=== PATIENT | female | born 1955 | race Caucasian/White ===

== ENCOUNTER → 2024-08-08 14:50 | Outpatient (CLI) | payer MEDICARE, OTHER, SELFPAY ==
--- NOTE | 2024-08-08 14:53 | DI.CT.S_ITS ---
PROCEDURE: CT CHEST WO CON INDICATIONS: RUL NODULE TECHNIQUE: Noncontrast 5 mm thick sections acquired from the pulmonary apices to the posterior costophrenic angles. 1 mm lung window, 5 mm thick coronal and sagittal and 7 mm axial MIP reformats were then acquired. For radiation dose reduction, the following was used: automated exposure control, adjustment of mA and/or kV according to patient size. COMPARISON: [facility], CT, CT CHEST WITHOUT CONTRAST, 01/24/2023, 13:26. [facility], CT, CT CHEST WITHOUT CONTRAST, 07/18/2023, 12:08. [facility], CT, CT CHEST WITHOUT CONTRAST, 01/25/2022, 10:27. FINDINGS: Image quality: Diagnostic Lungs and pleura: No dense airspace disease or pleural effusions. Again seen is a right upper lobe pulmonary nodule on image ( ) measuring 9 x 5 mm, previously 12 x 6 mm. This was 1st seen in December of 2022 but not seen in December of 2021. No other new or enlarging nodule. Micro nodules and granulomas are seen elsewhere. There is a new ill-defined ground-glass density in the left lower lobe (/). Atypical cystic lesion in the lateral portion of the left upper lobe is seen, similar to prior in December 2022 measuring up to 1.9 cm (/109) No measurable solid portion is seen currently. Mediastinum, heart, and esophagus: Mild distal esophageal wall thickening, nonspecific, adjacent to postsurgical changes at the gastroesophageal junction. No pathologic lymph nodes by size criteria. There are coronary calcifications. Heart size is at the upper limit of normal. 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 Bones: There are degenerative changes. IMPRESSION: Pulmonary nodules as described above. The right upper lobe pulmonary nodule is slightly decreased in size. (/) New ill-defined ground-glass density in the left lower lobe is seen, possibly infectious/inflammatory (/214). Atypical cystic lesion in the lateral left upper lobe is stable (/109). Another six-month follow-up is recommended for the above findings. Other findings above. Dictated by: Matias Covarrubias M.D. on 08/08/2024 at 17:19 Approved by: Matias Covarrubias M.D. on 08/08/2024 at 17:30
== END ==
PROVIDERS: PCP Nurse Practitioner Family; Referring Provider Internal Medicine; Visit Provider Internal Medicine
DX: R91.8 Other nonspecific abnormal finding of lung field (principal); I25.10 Atherosclerotic heart disease of native coronary artery without angina pectoris
CPT/HCPCS: 71250

== ENCOUNTER → 2024-10-25 08:22 | Outpatient (CLI) | payer MEDICARE, OTHER, SELFPAY | LOC: RESP 08:23 | PROVIDERS: PCP Nurse Practitioner Family; Referring Provider Internal Medicine; Visit Provider Internal Medicine | DX: R06.02 Shortness of breath (principal); J30.9 Allergic rhinitis, unspecified; J45.40 Moderate persistent asthma, uncomplicated; R91.8 Other nonspecific abnormal finding of lung field | CPT/HCPCS: 94060; 94726; 94729 ==